=== PATIENT | female | born 1930 | race Caucasian/White ===

== ENCOUNTER → 2016-08-17 | Outpatient (REF) | payer MEDICARE, BC ==
[2016-08-17 18:43] LABS: ANION GAP 10 MEQ/L (8-16); BLOOD UREA NITROGEN 25 MG/DL (7-18); CALCIUM LEVEL 9.2 MG/DL (8.8-10.2); CARBON DIOXIDE LEVEL 29 MEQ/L (21-32); CHLORIDE LEVEL 106 MEQ/L (98-107); CREATININE FOR GFR 0.72 MG/DL (0.55-1.02); GLOMERULAR FILTRATION RATE > 60.0 (>32); GLUCOSE, FASTING 77 MG/DL (83-110); POTASSIUM SERUM 4.3 MEQ/L (3.5-5.1); SODIUM LEVEL 145 MEQ/L (136-145)
== END ==
LOC: M SFHCPLAZ 17:02
PROVIDERS: ATTEND Internal Medicine
DX: I10 Essential (primary) hypertension (principal)
CPT/HCPCS: 36415; 80048; 84443; G0463

== ENCOUNTER → 2016-12-20 | Outpatient (REF) | payer MEDICARE, BC | LOC: M SFHCPLAZ 08:17 | PROVIDERS: ATTEND Internal Medicine | DX: R30.0 Dysuria (principal) ==

== ENCOUNTER → 2017-03-14 | Outpatient (CLI) | payer MEDICARE, BC ==
--- NOTE | 2017-03-14 16:13 | REP ---
Chest x-ray: Two views: History: Cough. Comparison study 01/13/2015. 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 The lungs are somewhat hyperinflated but free of infiltrate. Pleural angles are sharp. Heart is not felt to be enlarged. The aorta is calcific and tortuous. 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 Pulmonary vasculature is not increased. Impression: Hyperinflation. Severe scoliosis. No acute disease. Signed by Spencer Burnett MD 03/14/2017 04:15 P
== END ==
LOC: M RAD 14:56
PROVIDERS: ATTEND Nurse Practitioner Family
DX: M41.25 Other idiopathic scoliosis, thoracolumbar region (principal); I70.0 Atherosclerosis of aorta; R05 Cough
CPT/HCPCS: 71020; G0463

== ENCOUNTER → 2017-06-27 | Outpatient (REF) | payer MEDICARE, BC ==
[~2017-06-27] MED LIST: CALTCHW4 PO; GLUC1CAP10 PO; IBUP200C10 PO; LISI10TA2 PO; OCUVCAP2 PO; PERI12LIQ PO; SIMV10TA2 PO; STOO100C PO; VITA100067 PO; VITA500T PO; ZOLP5TAB PO
[2017-06-27 16:20] LABS: MEAN CORPUSCULAR HGB CONC 31.8 g/dl (32.0-36.5); MEAN CORPUSCULAR VOLUME 94.5 fl (80.0-96.0); PLATELET COUNT, AUTOMATED 254 10^3/uL (150-450); RED CELL DISTRIBUTION WIDTH 13.7 % (11.5-14.5); WHITE BLOOD COUNT 5.7 10^3/uL (4.0-10.0)
[2017-06-27 16:47] LABS: ALBUMIN 3.8 GM/DL (3.2-5.2); ALBUMIN/GLOBULIN RATIO 1.31 (1.00-1.93); ALKALINE PHOSPHATASE 51 U/L (45-117); ALT/SGPT 28 U/L (12-78); ANION GAP 8 MEQ/L (8-16); AST/SGOT 24 U/L (7-37); BILIRUBIN,TOTAL 0.3 MG/DL (0.2-1.0); BLOOD UREA NITROGEN 29 MG/DL (7-18); CALCIUM LEVEL 9.4 MG/DL (8.8-10.2); CARBON DIOXIDE LEVEL 29 MEQ/L (21-32); CHLORIDE LEVEL 105 MEQ/L (98-107); CHOLESTEROL LEVEL 234 MG/DL (<200); CREATININE FOR GFR 0.88 MG/DL (0.55-1.02); GLOMERULAR FILTRATION RATE > 60.0 (>32); GLUCOSE, FASTING 99 MG/DL (83-110); MAGNESIUM LEVEL 2.4 MG/DL (1.8-2.4); POTASSIUM SERUM 4.3 MEQ/L (3.5-5.1); SODIUM LEVEL 142 MEQ/L (136-145); TOTAL PROTEIN 6.7 GM/DL (6.4-8.2); TRIGLYCERIDES LEVEL 92 MG/DL (<150)
== END ==
LOC: M SFHCPLAZ 13:56
PROVIDERS: ATTEND Internal Medicine
DX: K55.8 Other vascular disorders of intestine (principal); I10 Essential (primary) hypertension; E78.00 Pure hypercholesterolemia, unspecified

== ENCOUNTER 2017-06-30 10:27 | Day surgery (SDC) | payer MEDICARE, BC ==
[~2017-06-30] VITALS: Ht 157.5 cm; Wt 53.4 kg
[~2017-06-30 10:27] MED LIST changes: +OFLOXACIN 0.3 % (OCUFLOX) OPTH SOL 5ML OS ONE; +PHENYLEPHRINE 2.5% OPHTH SOL 2ML OS ONE; +PROPARACAINE 0.5% OPHTH SOL 15ML OS ONE; +TROPICAMIDE 1% OPHTH SOLN 2ML OS ONE
[2017-06-30] MEDS ORDERED: POVIDONE-IODINE 5% OPHTH PREP SOL 30ML As Ordered ONE (14:02)
[2017-06-30] MEDS ORDERED: DUOVISC (0.50ML VISCOAT/0.55ML PROVISC) OPHTH KIT As Ordered ONE (14:02)
[2017-06-30] MEDS ORDERED: CEFUROXIME 1MG/0.1ML INTRACAMERAL INJ As Ordered ONE (14:02)
[2017-06-30] MEDS ORDERED: ACETYLCHOLINE OPHTH SOLN 1% 2ML (MIOCHOL-E) As Ordered ONE (14:02)
[2017-06-30] MEDS ORDERED: BALANCED SALT IRRIGATION SOLUTION 500ML BAG (FOR OR EYE MACHINE) As Ordered ONE (14:02)
[2017-06-30] MEDS ORDERED: LIDOCAINE 0.75%/EPINEPHRINE 0.025% IN BSS 1ML SYR INTRACAMERAL (OR ONLY) As Ordered ONE (14:02)
[2017-06-30] MEDS ORDERED: MIDAZOLAM INJ 2 MG/2 ML VIAL (J2250) As Ordered ONE (14:13)
[2017-06-30] MEDS ORDERED: fentaNYL 100 MCG/2 ML INJECTION (J3010) As Ordered ONE (14:13)
[2017-06-30 15:20] VITALS: BP 118/65
--- NOTE | 2017-07-01 13:07 | RO ---
DATE OF PROCEDURE: 06/30/2017 PREOPERATIVE DIAGNOSIS: Visually significant nuclear sclerotic cataract left eye. POSTOPERATIVE DIAGNOSIS: Visually significant nuclear sclerotic cataract left eye. PROCEDURE: Cataract extraction with use of phacoemulsification and placement of intraocular lens, AU00T0, 22.0, left eye. SURGEON: Danilo Farfan DO DRESSMAKER GARMENT FITTER: ANESTHESIA: Local with monitored anesthesia care (MAC). COMPLICATIONS: None. POSTOPERATIVE CONDITION: Stable. INDICATION FOR SURGERY: Blurred vision left eye affecting patient's activities of daily living. DESCRIPTION OF PROCEDURE: The patient was seen in the preoperative area and properly identified. The correct operative eye was identified and marked. Attention was turned to that eye. The patient received topical antibiotics in the preoperative area. The patient then received topical dilating drops consisting of tropicamide and phenylephrine. The patient was then transferred to the operating room. The correct side was re-identified. The patient received topical anesthetics and antibiotics on the surface of the eye. The eye was prepped and draped in a sterile fashion. The upper and lower eyelids were isolated with Tegaderm tape, and the lids were held open with an adjustable speculum. Using a sideport blade, a paracentesis incision was made. Intraocular preservative-free lidocaine was then injected into the anterior chamber. Viscoelastic was then injected into the anterior chamber through the paracentesis. Using a 2.65 mm sharp-tipped keratome, the anterior chamber was entered via a temporal clear corneal incision. A continuous curvilinear capsulorrhexis was created with the aid of a 26-gauge cystotome and Utrata forceps. Hydrodissection was performed with balanced salt solution (BSS) on a blunt cannula until the nucleus was freely mobile. The crystalline lens was phacoemulsified and aspirated. Additional cohesive viscoelastic was placed into the capsular bag to deepen it. A AU00T0, 22.0 lens was placed into the capsular bag and confirmed by visualizing the continuous curvilinear capsulorrhexis. Additional irrigation and aspiration was used to remove cortical material and remaining viscoelastic. The clear corneal incision was hydrated with BSS on a blunt cannula. The lens was well positioned. The incisions were then tested for leaks and found to be negative. The eye was then palpated for appropriate pressure and adjusted accordingly with BSS. The eyelid speculum was carefully removed. TobraDex ointment was placed in the eye. An eye patch and shield were then secured over the eye. The patient tolerated the procedure well and was discharged to the recovery unit in a stable condition.
== END 2017-06-30 16:13 | disposition home or self-care (01) ==
LOC: M SDC 10:27
PROVIDERS: ATTEND Ophthalmology
DX: H25.12 Age-related nuclear cataract, left eye (principal); I10 Essential (primary) hypertension; Z88.1 Allergy status to other antibiotic agents; Z79.899 Other long term (current) drug therapy
CPT/HCPCS: 66984; J2250; J3010; V2632

== ENCOUNTER 2017-07-07 09:56 | Day surgery (SDC) | payer MEDICARE, BC ==
[~2017-07-07] VITALS: Ht 157.5 cm; Wt 53.5 kg
[~2017-07-07 09:56] MED LIST changes: +OFLOXACIN 0.3 % (OCUFLOX) OPTH SOL 5ML OD ONE; -OFLOXACIN 0.3 % (OCUFLOX) OPTH SOL 5ML OS ONE; +PHENYLEPHRINE 2.5% OPHTH SOL 2ML OD ONE; -PHENYLEPHRINE 2.5% OPHTH SOL 2ML OS ONE; +PROPARACAINE 0.5% OPHTH SOL 15ML OD ONE; -PROPARACAINE 0.5% OPHTH SOL 15ML OS ONE; +TROPICAMIDE 1% OPHTH SOLN 2ML OD ONE; -TROPICAMIDE 1% OPHTH SOLN 2ML OS ONE
[2017-07-07] MEDS ORDERED: BALANCED SALT IRRIGATION SOLUTION 500ML BAG (FOR OR EYE MACHINE) As Ordered ONE (11:10)
[2017-07-07] MEDS ORDERED: POVIDONE-IODINE 5% OPHTH PREP SOL 30ML As Ordered ONE (11:10)
[2017-07-07] MEDS ORDERED: ACETYLCHOLINE OPHTH SOLN 1% 2ML (MIOCHOL-E) As Ordered ONE (11:10)
[2017-07-07] MEDS ORDERED: LIDOCAINE 0.75%/EPINEPHRINE 0.025% IN BSS 1ML SYR INTRACAMERAL (OR ONLY) As Ordered ONE (11:11)
[2017-07-07] MEDS ORDERED: CEFUROXIME 1MG/0.1ML INTRACAMERAL INJ As Ordered ONE (11:11)
[2017-07-07] MEDS ORDERED: DUOVISC (0.50ML VISCOAT/0.55ML PROVISC) OPHTH KIT As Ordered ONE (11:11)
[2017-07-07] MEDS ORDERED: MIDAZOLAM INJ 2 MG/2 ML VIAL (J2250) As Ordered ONE (11:31)
[2017-07-07] MEDS ORDERED: fentaNYL 100 MCG/2 ML INJECTION (J3010) As Ordered ONE (11:31)
[2017-07-07] MEDS ORDERED: ONDANSETRON 4MG/2ML VIAL (J2405) As Ordered ONE (11:56)
[2017-07-07 12:45] VITALS: BP 121/58
--- NOTE | 2017-07-08 19:41 | RO ---
DATE OF PROCEDURE: 07/07/2017 PREOPERATIVE DIAGNOSIS: Visually significant nuclear sclerotic cataract right eye. POSTOPERATIVE DIAGNOSIS: Visually significant nuclear sclerotic cataract right eye. PROCEDURE: Cataract extraction with use of phacoemulsification and placement of intraocular lens, AU00T0 20.5, right eye. SURGEON: Danilo Farfan DO AIRCRAFT POWERPLANT REPAIRER: ANESTHESIA: Local with monitored anesthesia care (MAC). COMPLICATIONS: None. POSTOPERATIVE CONDITION: Stable. INDICATION FOR SURGERY: Blurred vision right eye affecting patient's activities of daily living. DESCRIPTION OF PROCEDURE: The patient was seen in the preoperative area and properly identified. The correct operative eye was identified and marked. Attention was turned to that eye. The patient received topical antibiotics in the preoperative area. The patient then received topical dilating drops consisting of tropicamide and phenylephrine. The patient was then transferred to the operating room. The correct side was re-identified. The patient received topical anesthetics and antibiotics on the surface of the eye. The eye was prepped and draped in a sterile fashion. The upper and lower eyelids were isolated with Tegaderm tape, and the lids were held open with an adjustable speculum. Using a sideport blade, a paracentesis incision was made. Intraocular preservative-free lidocaine was then injected into the anterior chamber. Viscoelastic was then injected into the anterior chamber through the paracentesis. Using a 2.4 mm sharp-tipped keratome, the anterior chamber was entered via a temporal clear corneal incision. A continuous curvilinear capsulorrhexis was created with the aid of a 26-gauge cystotome and Utrata forceps. Hydrodissection was performed with balanced salt solution (BSS) on a blunt cannula until the nucleus was freely mobile. The crystalline lens was phacoemulsified and aspirated. Additional cohesive viscoelastic was placed into the capsular bag to deepen it. A 20.5 lens was placed into the capsular bag and confirmed by visualizing the continuous curvilinear capsulorrhexis. Additional irrigation and aspiration was used to remove cortical material and remaining viscoelastic. The clear corneal incision was hydrated with BSS on a blunt cannula. The lens was well positioned. The incisions were then tested for leaks and found to be negative. The eye was then palpated for appropriate pressure and adjusted accordingly with BSS. The eyelid speculum was carefully removed. A shield was placed over the eye. The patient tolerated the procedure well and was discharged to the recovery unit in a stable condition. [facility]
== END 2017-07-07 12:55 | disposition home or self-care (01) ==
LOC: M SDC 09:56
PROVIDERS: ATTEND Ophthalmology
DX: H25.11 Age-related nuclear cataract, right eye (principal); E78.5 Hyperlipidemia, unspecified; I10 Essential (primary) hypertension; G47.00 Insomnia, unspecified; Z85.820 Personal history of malignant melanoma of skin; M81.0 Age-related osteoporosis without current pathological fracture; Z88.1 Allergy status to other antibiotic agents; Z79.899 Other long term (current) drug therapy
CPT/HCPCS: 66984; J2250; J2405; V2632